=== PATIENT | male | born 1990 | race Two or more races ===

== ENCOUNTER 2017-03-07 02:05 | Emergency (ER) | payer SELFPAY ==
[~2017-03-07 02:05] MED LIST: MUCINEX DM ER1 EACH PO; NOHOMEMEDS; PHENERGAN-CODE120 ML PO; VENTOLIN HFA18 GM IH; ZITHROMAX Z-PA250 MG PO; ZOFRAN ODT4 MG PO
== END 2017-03-07 02:15 | disposition left against medical advice (07) ==
LOC: EME 02:05
DX: R06.02 Shortness of breath (principal); Z53.21 Procedure and treatment not carried out due to patient leaving prior to being seen by health care provider